=== PATIENT | male | born 1970 | race Caucasian/White ===

== ENCOUNTER → 2017-02-08 | Outpatient (CLI) | payer OTHER ==
[2014-12-20 17:45] VITALS: BP 137/81
[~2017-02-08] MED LIST: DIAZ2TAB PO; DULO20CA PO; HYDR-2762 PO; PREG50CA PO; ZOLP5TAB PO
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
== END | disposition home or self-care (01) ==
LOC: PNCL 13:28
PROVIDERS: ATTEND Anesthesiology
DX: M54.5 Low back pain (principal); M79.605 Pain in left leg; M79.604 Pain in right leg
CPT/HCPCS: 99214

== ENCOUNTER → 2020-10-20 | Outpatient (CLI) | payer SELFPAY ==
[2017-05-20 11:00] VITALS: BP 130/74
[~2020-10-20] MED LIST changes: -HYDR-2762 PO; +HYDR-2765 PO; -PREG50CA PO; +PREG50CA91 PO
--- NOTE | 2020-10-20 15:12 | KCIC ---
MRI of the cervical spine without contrast 10/20/2020 CLINICAL HISTORY: Neck pain. Left arm and left leg numbness and tingling. TECHNIQUE: Unenhanced T1-weighted, T2-weighted and inversion recovery sagittal and gradient echo and T2-weighted axial images of the cervical spine were obtained. FINDINGS: Comparison study is dated 03/09/2012. Very mild lateral curvature of the cervical spine is seen convex to the right. There is reversal the normal cervical lordosis. The patient is post anterior fusion using what appears to be an anterior pl ate, bone screws and bone graft material at C4-5. The patient is post anterior fusion using bone silvestre t material at C5-6 and C6-7. Degenerative signal changes are seen involving the remaining discs of th e cervical spine. Degenerative signal changes are seen within the marrow surrounding these discs. Atr ophy and paracentral areas of myelomalacia are seen involving the cervical spinal cord at C4-5. The a reas of myelomalacia measure 7 mm in size. No additional area of abnormal signal intensity is seen in volving the cervical spinal cord. At the C2-3 disc space there is a minimal generalized disc bulge. Degenerative changes are seen invol ving the uncovertebral and facet joints bilaterally. These findings do not result in significant cent ral spinal canal or neural foraminal stenosis. At the C3-4 disc space there is a mild to moderate generalized disc bulge. Superimposed on this disc bulge is a left paracentral focal disc protrusion. This measures 3 mm in AP diameter. Degenerative ch anges are seen involving the uncovertebral and facet joints, left greater than right. These findings efface the anterior posterior CSF resulting in mild left greater than right central spinal canal sten osis without evidence of cord impingement. Moderate left neural foraminal stenosis is seen. The right neural foramen is patent. At the C4-5 level degenerative changes are seen involving the uncovertebral and facet joints, left gr eater than right. The central spinal canal stenosis and cord impingement seen on the previous examina tion has resolved. Mild mild left neural foraminal stenosis is seen. The right neural foramen is muniz nt. At the C5-6 level degenerative changes are seen involving the uncovertebral and facet joints bilatera lly. These findings do not result in significant central spinal canal or neural foraminal stenosis. At the C6-7 level degenerative changes are seen involving the uncovertebral and facet joints bilatera lly. These findings do not result in significant central spinal canal or neural foraminal stenosis. At the C7-T1 disc space there is a mild generalized disc bulge. This is eccentric to the right. Degen erative changes are seen involving the facet joints, right greater than left. These findings do not r esult in significant central spinal canal stenosis. Mild to moderate right neural foraminal stenosis is seen. The left neural foramen is patent. IMPRESSION: 1. Status post anterior fusion at C4-5. The central spinal canal stenosis at this level and cord imp ingement seen on the previous examination have resolved. Atrophy and myelomalacia are seen involving the cervical spinal cord at this level. 2. Degenerative changes are seen throughout the cervical spine. These findings result in mild left g reater than right central spinal canal stenosis at C3-4 without evidence of cord impingement. Moderat e left neural foraminal stenosis is seen at C3-4. Mild left neural foraminal stenosis is seen at C4-5 . Mild to moderate right neural foraminal stenosis is seen at C7-T1. Electronically signed by: Keith Negrete MD (10/20/2020 3:09 PM) [place] [id number]
== END ==
LOC: KCIC MRI 12:25
PROVIDERS: ATTEND Family Medicine
DX: M47.812 Spondylosis without myelopathy or radiculopathy, cervical region (principal); M48.03 Spinal stenosis, cervicothoracic region
CPT/HCPCS: 72141